=== PATIENT | male | born 1995 | race Caucasian/White ===

== ENCOUNTER 2018-06-28 12:40 | Outpatient (CLI) | payer BC ==
--- NOTE | 2018-06-28 14:23 | CT ---
NONCONTRAST CT HEAD: Date: 06-28-18 History: Migraine headaches. Headaches have been getting worse over the last 6 months. Comparison: None available. FINDINGS: There is no evidence of a hemorrhage, acute infarction, mass effect, or midline shift. The ventricula r system is normal in size, shape, and position. Visualized paranasal sinuses and mastoid air cells a re clear. Calvarial structures are intact. IMPRESSION: No acute intracranial abnormality is demonstrated. POS: [facility]
== END 2018-06-28 12:41 | disposition home or self-care (01) ==
LOC: CT 12:40
PROVIDERS: ATTEND Psychiatry & Neurology Neurology
DX: G43.109 Migraine with aura, not intractable, without status migrainosus (principal)
CPT/HCPCS: 70450